=== PATIENT | female | born 1980 | race Caucasian/White ===

== ENCOUNTER 2017-11-25 09:58 | Emergency (ER) | payer SELFPAY ==
[2017-11-25] MEDS ORDERED: VOLTAREN1%GEL TOP (10:26)
[2017-11-25] MEDS ORDERED: MOTRIN400 MG PO (10:26)
[2017-11-25] MEDS ORDERED: ASPERCREME LIDOCA41 TOP (10:26)
[2017-11-25 11:20] VITALS: BP 114/65
== END 2017-11-25 11:22 | disposition home or self-care (01) | DRG 538 ==
LOC: ED 09:58
DX: S76.012A Strain of muscle, fascia and tendon of left hip, initial encounter (principal); X58.XXXA Exposure to other specified factors, initial encounter

== ENCOUNTER 2018-02-09 13:38 | Emergency (ER) | payer SELFPAY ==
[~2018-02-09 13:38] MED LIST: ASPERCREME LIDOCA41 TOP; MOTRIN400 MG PO; VOLTAREN1%GEL TOP
[2018-02-09] MEDS ORDERED: MOTRIN400 MG PO (14:32)
[2018-02-09 15:05] VITALS: BP 118/66
== END 2018-02-09 15:05 | disposition home or self-care (01) | DRG 605 ==
LOC: ED 13:38
DX: S90.122A Contusion of left lesser toe(s) without damage to nail, initial encounter (principal); M25.475 Effusion, left foot; W23.1XXA Caught, crushed, jammed, or pinched between stationary objects, initial encounter; Y92.009 Unspecified place in unspecified non-institutional (private) residence as the place of occurrence of the external cause

== ENCOUNTER 2018-03-31 13:23 | Emergency (ER) | payer OTHER ==
[~2018-03-31] VITALS: Ht 170.2 cm; Wt 61.4 kg
[2018-03-31 16:10] LABS: HEMATOCRIT 48.7 % (37.0-47.0); IMMATURE GRANULOCYTES 0.4 % (0.0-5.0); MEAN CELL VOLUME 100.2 fL CALC (80.0-100.0); MEAN CORPUSCULAR HGB CONC 34.9 g/L CALC (32.0-36.0); NEUT# 13.99 thou/uL (2.00-7.15); RED BLOOD COUNT 4.86 mill/uL (4.20-5.60); RED CELL DISTRI WIDTH 11.7 % (11.5-15.5)
[2018-03-31 16:31] LABS: BARBITURATES NEGATIVE (NEGATIVE); COCAINE POSITIVE (NEGATIVE); METHADONE NEGATIVE (NEGATIVE); TETRAHYDROCANNABIONOL POSITIVE (NEGATIVE); TRICYLIC ANTIDEPRESSANTS NEGATIVE (NEGATIVE)
[2018-03-31 16:32] LABS: OXCYCODONE NEGATIVE (NEGATIVE)
[2018-03-31 16:40] LABS: ALBUMIN 4.7 g/dL (3.2-5.0); ALKALINE PHOSPHATASE 93 u/l (38-126); ANION GAP 17 (6-22 (CALC)); BILIRUBIN, TOTAL 1.8 mg/dL (0.0-1.4); BUN 10 mg/dL (7-17); BUN/CREATININE RATIO 11 (12-20 (CALC)); CARBON DIOXIDE 23 mmol/l (22-30); CHLORIDE 100 mmol/l (95-108); CREATININE 0.9 mg/dL (0.5-1.0); GFR > 60 ML/MIN (>=60 (CALC)); GFR FOR AFR.AMER. > 60 ML/MIN (>=60 (CALC)); POTASSIUM 3.6 mmol/l (3.5-5.1); SGOT/AST 24 u/l (14-36); SODIUM 137 mmol/l (137-146); TOTAL PROTEIN 8.2 g/dL (6.3-8.2)
[2018-03-31 16:41] LABS: URINE BILIRUBIN - DIPSTICK NEGATIVE (NEGATIVE); URINE BLOOD DIPSTICK SMALL (NEGATIVE); URINE COLOR ORANGE; URINE GLUCOSE - DIPSTICK NEGATIVE (NEGATIVE); URINE KETONE 15 mg/dL (NEGATIVE); URINE LEUK ESTERASE NEGATIVE (NEGATIVE); URINE PROTEIN - DIPSTICK 30 mg/dL (NEG-TRACE); URINE SPECIFIC GRAVITY >=1.030
[2018-03-31 16:44] LABS: URINE NITRITE - DIPSTICK POSITIVE (Negative)
[2018-03-31 16:49] LABS: URINE BACTERIA MANY hpf; URINE SQUAMOUS EPITHELIAL CELL FEW EPI/hpf (0-FEW)
[2018-03-31] MEDS ORDERED: KEFLEX500 M1 PO (17:23)
[2018-03-31] MEDS ORDERED: PYRIDIUM200 MG PO (17:23)
[2018-03-31 17:49] VITALS: BP 104/73
== END 2018-03-31 17:56 | disposition home or self-care (01) | DRG 690 ==
LOC: ED 13:23
PROVIDERS: Emergency Medicine
DX: N39.0 Urinary tract infection, site not specified (principal); B96.20 Unspecified Escherichia coli [E. coli] as the cause of diseases classified elsewhere; R10.30 Lower abdominal pain, unspecified; F15.90 Other stimulant use, unspecified, uncomplicated; F14.90 Cocaine use, unspecified, uncomplicated; F12.90 Cannabis use, unspecified, uncomplicated

== ENCOUNTER 2018-06-13 20:27 | Emergency (ER) | payer SELFPAY ==
[~2018-06-13] VITALS: Ht 170.2 cm; Wt 46.8 kg
[~2018-06-13 20:27] MED LIST changes: +KEFLEX500 M1 PO; +PYRIDIUM200 MG PO
[2018-06-13] MEDS ORDERED: MOTRIN400 MG PO (22:56)
[2018-06-13 23:04] VITALS: BP 137/92
== END 2018-06-13 23:04 | disposition home or self-care (01) | DRG 605 ==
LOC: ED 20:27
DX: S00.03XA Contusion of scalp, initial encounter (principal); S30.810A Abrasion of lower back and pelvis, initial encounter; F17.200 Nicotine dependence, unspecified, uncomplicated; Y04.2XXA Assault by strike against or bumped into by another person, initial encounter

== ENCOUNTER 2018-10-17 22:49 | Emergency (ER) | payer SELFPAY ==
[~2018-10-17] VITALS: Ht 170.2 cm; Wt 60.0 kg
[2018-10-17] MEDS ORDERED: BENADRYL 50MG C50 MG PO (23:50)
[2018-10-17] MEDS ORDERED: MEDDOSEPAK PO (23:50)
[2018-10-17] MEDS ORDERED: AMOXICILLIN500 MG PO (23:50)
[2018-10-18 00:25] VITALS: BP 108/70
== END 2018-10-18 00:25 | disposition home or self-care (01) | DRG 607 ==
LOC: ED 22:49
DX: S60.562A Insect bite (nonvenomous) of left hand, initial encounter (principal); S50.862A Insect bite (nonvenomous) of left forearm, initial encounter; S80.861A Insect bite (nonvenomous), right lower leg, initial encounter; F17.210 Nicotine dependence, cigarettes, uncomplicated; W57.XXXA Bitten or stung by nonvenomous insect and other nonvenomous arthropods, initial encounter

== ENCOUNTER 2018-12-17 13:28 | Emergency (ER) | payer SELFPAY ==
[~2018-12-17] VITALS: Ht 170.2 cm; Wt 51.0 kg
[~2018-12-17 13:28] MED LIST changes: +AMOXICILLIN500 MG PO; +BENADRYL 50MG C50 MG PO; +MEDDOSEPAK PO
[2018-12-17] MEDS ORDERED: MIRTAZAPINE15 MG PO (13:37)
[2018-12-17] MEDS ORDERED: KEFLEX500 MG PO (13:53)
[2018-12-17] MEDS ORDERED: IBUPROFEN600 MG PO (13:53)
[2018-12-17 14:08] VITALS: BP 114/82
== END 2018-12-17 14:08 | disposition home or self-care (01) | DRG 603 ==
LOC: ED 13:28
DX: L03.811 Cellulitis of head [any part, except face] (principal); S00.01XA Abrasion of scalp, initial encounter; R59.0 Localized enlarged lymph nodes; F17.210 Nicotine dependence, cigarettes, uncomplicated; X58.XXXA Exposure to other specified factors, initial encounter

== ENCOUNTER 2021-05-15 17:08 | Emergency (ER) | payer SELFPAY ==
[~2021-05-15] VITALS: Ht 170.2 cm; Wt 61.4 kg
[~2021-05-15 17:08] MED LIST changes: +IBUPROFEN600 MG PO; +KEFLEX500 MG PO; +MIRTAZAPINE15 MG PO
[2021-05-15 18:00] VITALS: BP 117/82
[2021-05-15 18:30] VITALS: BP 111/80
[2021-05-15 18:54] LABS: HEMATOCRIT 43.4 % (37.0-47.0); IMMATURE GRANULOCYTES 0.1 % (0.0-5.0); MEAN CORPUSCULAR HGB 31.3 pG CALC (26.0-32.0); MEAN CORPUSCULAR HGB CONC 33.4 g/dL CAL (32.0-36.0); NEUT# 5.37 thou/uL (2.00-7.15); RED BLOOD COUNT 4.64 mill/uL (4.20-5.60); RED CELL DISTRI WIDTH 11.8 % (11.5-15.5)
[2021-05-15 19:00] VITALS: BP 109/78
[2021-05-15 19:00] LABS: HEMOGLOBIN 14.5 g/dl (12.0-16.0); MEAN CELL VOLUME 93.5 fL CALC (80.0-100.0)
[2021-05-15 19:01] LABS: URINE BLOOD DIPSTICK MODERATE (NEGATIVE); URINE COLOR YELLOW; URINE GLUCOSE - DIPSTICK NEGATIVE (NEGATIVE); URINE KETONE >=80 mg/dL (NEGATIVE); URINE LEUK ESTERASE NEGATIVE (NEGATIVE); URINE PROTEIN - DIPSTICK 30 mg/dL (NEG-TRACE); URINE SPECIFIC GRAVITY >=1.030; URINE UROBILINOGEN - DIPSTICK 0.2 E.U./dL (0.2)
[2021-05-15 19:09] LABS: URINE BILIRUBIN - DIPSTICK SMALL (NEGATIVE)
[2021-05-15 19:10] LABS: URINE NITRITE - DIPSTICK NEGATIVE (Negative)
[2021-05-15 19:11] LABS: URINE SQUAMOUS EPITHELIAL CELL MODERATE EPI/hpf (0-FEW); URINE WBC 0-2 WBC/hpf (0-5)
[2021-05-15 19:32] VITALS: BP 108/72
[2021-05-15 19:37] LABS: ALBUMIN 4.5 g/dL (3.2-5.0); ALKALINE PHOSPHATASE 70 u/l (38-126); AMYLASE 58 u/l (30-110); ANION GAP 15 (6-22 (CALC)); BUN 8 mg/dL (7-17); BUN/CREATININE RATIO 9 (12-20 (CALC)); CARBON DIOXIDE 27 mmol/l (22-30); CHLORIDE 101 mmol/l (95-108); CREATININE 0.9 mg/dL (0.5-1.0); GFR > 60 ML/MIN (>=60 (CALC)); GFR FOR AFR.AMER. > 60 ML/MIN (>=60 (CALC)); LIPASE 55 u/l (23-300); POTASSIUM 3.7 mmol/l (3.5-5.1); SGOT/AST 20 u/l (14-36); SODIUM 138 mmol/l (137-146); TOTAL PROTEIN 8.2 g/dL (6.3-8.2)
[2021-05-15 19:39] LABS: BILIRUBIN, TOTAL 0.6 mg/dL (0.0-1.4)
[2021-05-15 19:48] LABS: MYOGLOBIN 18 ng/mL (0 - 62)
[2021-05-15 20:00] VITALS: BP 120/71
[2021-05-15 20:30] VITALS: BP 115/71
== END 2021-05-15 20:39 | disposition home or self-care (01) | DRG 897 ==
LOC: ED 17:08
PROVIDERS: Emergency Medicine
DX: F19.10 Other psychoactive substance abuse, uncomplicated (principal); J44.9 Chronic obstructive pulmonary disease, unspecified; F32.A Depression, unspecified; F41.9 Anxiety disorder, unspecified; F17.210 Nicotine dependence, cigarettes, uncomplicated; Z20.822 Contact with and (suspected) exposure to COVID-19